=== PATIENT | female | born 1955 | race Caucasian/White ===

== ENCOUNTER 2020-01-08 16:25 | Inpatient (IN) | payer MEDICARE, MEDICAID ==
[~2020-01-08] VITALS: Ht 154.9 cm; Wt 68.8 kg
[2020-01-08] MEDS ORDERED: MAGNESIUM SULFATE PMX 2GM/50ML 50 ML IVPB ONE (17:30)
[2020-01-08 18:14] LABS: BASOPHILS # (AUTO) 0.05 x10^3/uL (0-0.1); BASOPHILS % (AUTO) 0 % (0-1); EOSINOPHILS # (AUTO) 0.15 x10^3/uL (0-0.4); EOSINOPHILS % (AUTO) 1 % (1-7); LYMPHOCYTES # (AUTO) 2.59 x10^3/uL (1-3.4); LYMPHOCYTES % (AUTO) 20 % (22-44); MD NO; MEAN CORPUSCULAR HEMOGLOBIN 29.7 pg (27.0-34.8); MEAN CORPUSCULAR HGB CONC 32.5 g/dL (32.4-35.8); MEAN CORPUSCULAR VOLUME 91.4 fL (80-100); MONOCYTES # (AUTO) 1.13 x10^3/uL (0.2-0.8); MONOCYTES % (AUTO) 9 % (2-9); NEUTROPHILS # (AUTO) 9.34 x10^3/uL (1.8-6.8); NEUTROPHILS % (AUTO) 71 % (42-75); PLATELET COUNT 465 x10^3/uL (130-400); RED BLOOD COUNT 5.58 x10^6/uL (3.82-5.3)
[2020-01-08 18:25] LABS: ALBUMIN 3.5 g/dL (3.4-5.0); ANION GAP 4 mmol/L (5-15); CALCIUM 9.1 mg/dL (8.5-10.1); CHLORIDE 105 mmol/L (98-107)
[2020-01-08 18:30] LABS: ALANINE AMINOTRANSFERASE 22 U/L (12-78); ALKALINE PHOSPHATASE 104 U/L (45-117); BILIRUBIN,TOTAL 0.2 mg/dL (0.2-1.0); TOTAL PROTEIN 9.4 g/dL (6.4-8.2); TROPONIN I < 0.015 ng/mL (0.000-0.045)
[2020-01-08] MEDS ORDERED: CEFEPIME 1 GM in DEXTROSE 5% 50 ML IV ONE (18:30)
--- NOTE | 2020-01-08 19:45 | NUR ---
Report received from MERA Patel. Patient to be admitted for resp infection with COVID r/o. Patient upset upon meeting stating she wanted a meal because she hadn't eaten all day and she wanted to walk to the bathroom. Advised patient we could give her crackers and a bedside commode. Patient stating she would rather go home. Provided bedside commode for patient. Patient agrees to stay at this time.
--- NOTE | 2020-01-08 20:23 | NUR ---
Report given to MERA Chávez. Patient to be transferred to room 301.
[2020-01-08 20:45] VITALS: BP 114/75
[2020-01-08] MEDS ORDERED: hydrALAzine 20 MG/ML, 1ML IVPush PRN (23:00)
[2020-01-08] MEDS ORDERED: ONDANSETRON 2MG/ML, 2ML IVPush PRN (23:00)
[2020-01-08] MEDS ORDERED: ACETAMINOPHEN 325 MG TABLET PO PRN (23:00)
[2020-01-08] MEDS: ENOXAPARIN 40 MG/0.4 ML SQ SCH (23:27)
[2020-01-08] MEDS: methylPREDNISolone SOD SUCC 125 MG/2 ML IVPush SCH (23:27)
[2020-01-08] MEDS: CEFTRIAXONE PMX 1GM/50ML 50 ML IV SCH (23:28)
[2020-01-08] MEDS: HYDROcodone/APAP 5/325 TABLET PO PRN (23:34)
[2020-01-09] MEDS: AZITHROMYCIN 500 MG in SODIUM CHLORIDE 0.9% 250 ML IV SCH (00:24)
[2020-01-09] MEDS ORDERED: ALBUTEROL HFA 90 MCG/SPRAY INH PRN (01:00)
[2020-01-09 01:49] VITALS: BP 128/73
[2020-01-09] MEDS ORDERED: CLON0.1T22 PO (02:09)
[2020-01-09] MEDS ORDERED: GABA300C10 PO (02:12)
[2020-01-09] MEDS ORDERED: BUDE10.2 INH (02:12)
[2020-01-09] MEDS ORDERED: albuterol (02:12)
[2020-01-09] MEDS ORDERED: VENL37.52 PO (02:12)
[2020-01-09 06:13] LABS: BASOPHILS % (AUTO) 0 % (0-1); EOSINOPHILS # (AUTO) 0.04 x10^3/uL (0-0.4); EOSINOPHILS % (AUTO) 0 % (1-7); LYMPHOCYTES # (AUTO) 1.27 x10^3/uL (1-3.4); LYMPHOCYTES % (AUTO) 13 % (22-44); MD NO; MEAN CORPUSCULAR HEMOGLOBIN 29.9 pg (27.0-34.8); MEAN CORPUSCULAR HGB CONC 32.8 g/dL (32.4-35.8); MEAN CORPUSCULAR VOLUME 91.1 fL (80-100); MEAN PLATELET VOLUME 7.9 fL (7.4-10.4); MONOCYTES # (AUTO) 0.16 x10^3/uL (0.2-0.8); MONOCYTES % (AUTO) 2 % (2-9); NEUTROPHILS # (AUTO) 8.64 x10^3/uL (1.8-6.8); NEUTROPHILS % (AUTO) 85 % (42-75); PLATELET COUNT 399 x10^3/uL (130-400); RED BLOOD COUNT 5.43 x10^6/uL (3.82-5.3)
[2020-01-09] MEDS: HYDROcodone/APAP 5/325 TABLET PO PRN ×2 (06:23→19:59)
[2020-01-09 06:25] LABS: ANION GAP 8 mmol/L (5-15); CALCIUM 8.6 mg/dL (8.5-10.1); CHLORIDE 107 mmol/L (98-107); CREATININE 0.84 mg/dL (0.55-1.02)
[2020-01-09] MEDS: GABAPENTIN 300 MG CAPSULE PO SCH ×2 (08:29→19:59)
[2020-01-09] MEDS: VENLAFAXINE XR 37.5MG CAP.ER.24H PO SCH (08:29)
[2020-01-09] MEDS: SENNA/DOCUSATE TABLET PO SCH (08:29)
[2020-01-09] MEDS: methylPREDNISolone SOD SUCC 125 MG/2 ML IVPush SCH (08:29)
[2020-01-09 08:38] VITALS: BP 119/67
[2020-01-09] MEDS ORDERED: CLON0.5T PO (09:00)
[2020-01-09] MEDS ORDERED: KETOROLAC 30 MG/1 ML IVPush PRN (14:00)
[2020-01-09 14:05] VITALS: BP 116/68
[2020-01-09] MEDS: ALBUTEROL-IPRATROPIUM MDI INH INH SCH ×2 (16:37→21:00)
[2020-01-09 20:36] VITALS: BP 130/82
[2020-01-09] MEDS: ENOXAPARIN 40 MG/0.4 ML SQ SCH (22:48)
[2020-01-09] MEDS: CEFTRIAXONE PMX 1GM/50ML 50 ML IV SCH (22:48)
[2020-01-10] MEDS: AZITHROMYCIN 500 MG in SODIUM CHLORIDE 0.9% 250 ML IV SCH (00:30)
[2020-01-10 05:30] VITALS: BP 145/95
[2020-01-10] MEDS: ALBUTEROL-IPRATROPIUM MDI INH INH SCH ×4 (05:30→21:00)
[2020-01-10] MEDS: HYDROcodone/APAP 5/325 TABLET PO PRN ×4 (06:39→21:31)
[2020-01-10 06:49] LABS: INTERNATIONAL NORMALIZED RATIO 0.94 (0.93-1.1)
[2020-01-10 07:15] LABS: BASOPHILS # (AUTO) 0.04 x10^3/uL (0-0.1); BASOPHILS % (AUTO) 0 % (0-1); EOSINOPHILS # (AUTO) 0.06 x10^3/uL (0-0.4); EOSINOPHILS % (AUTO) 0 % (1-7); LYMPHOCYTES # (AUTO) 3.06 x10^3/uL (1-3.4); LYMPHOCYTES % (AUTO) 19 % (22-44); MD SCAN; MEAN CORPUSCULAR HEMOGLOBIN 29.8 pg (27.0-34.8); MEAN CORPUSCULAR HGB CONC 32.5 g/dL (32.4-35.8); MEAN CORPUSCULAR VOLUME 91.6 fL (80-100); MEAN PLATELET VOLUME 8.1 fL (7.4-10.4); MONOCYTES # (AUTO) 0.96 x10^3/uL (0.2-0.8); MONOCYTES % (AUTO) 6 % (2-9); NEUTROPHILS # (AUTO) 12.33 x10^3/uL (1.8-6.8); NEUTROPHILS % (AUTO) 75 % (42-75); PLATELET COUNT 401 x10^3/uL (130-400); RED BLOOD COUNT 5.92 x10^6/uL (3.82-5.3); RED CELL DISTRIBUTION WIDTH 16.2 % (9.6-15.2)
[2020-01-10] MEDS ORDERED: TIOTROPIUM INH SCH (09:00)
[2020-01-10] MEDS: SENNA/DOCUSATE TABLET PO SCH (09:13)
[2020-01-10] MEDS: GABAPENTIN 300 MG CAPSULE PO SCH ×2 (09:13→21:30)
[2020-01-10] MEDS: CLINDAMYCIN PMX 600MG/50ML 50 ML IV SCH ×3 (09:13→22:44)
[2020-01-10] MEDS: VENLAFAXINE XR 37.5MG CAP.ER.24H PO SCH (09:14)
[2020-01-10 09:30] VITALS: BP 130/79
[2020-01-10 12:45] VITALS: BP_SYST 117; BP_SYST 130; BP_DIAS 72; BP_DIAS 79
[2020-01-10] MEDS: BUDESONIDE 0.5 MG/2 ML INHA NPPB SCH (21:00)
[2020-01-10 21:33] VITALS: BP 147/80
[2020-01-10] MEDS: CEFTRIAXONE PMX 1GM/50ML 50 ML IV SCH (23:58)
[2020-01-10] MEDS: ENOXAPARIN 40 MG/0.4 ML SQ SCH (23:58)
[2020-01-11 00:40] VITALS: BP 121/78
[2020-01-11] MEDS: AZITHROMYCIN 500 MG in SODIUM CHLORIDE 0.9% 250 ML IV SCH (00:47)
[2020-01-11] MEDS: ALBUTEROL-IPRATROPIUM MDI INH INH SCH ×4 (06:00→21:00)
[2020-01-11 06:11] LABS: BASOPHILS # (AUTO) 0.04 x10^3/uL (0-0.1); BASOPHILS % (AUTO) 0 % (0-1); EOSINOPHILS # (AUTO) 0.26 x10^3/uL (0-0.4); EOSINOPHILS % (AUTO) 2 % (1-7); LYMPHOCYTES # (AUTO) 2.75 x10^3/uL (1-3.4); LYMPHOCYTES % (AUTO) 20 % (22-44); MD NO; MEAN CORPUSCULAR HEMOGLOBIN 29.7 pg (27.0-34.8); MEAN CORPUSCULAR HGB CONC 32.4 g/dL (32.4-35.8); MEAN CORPUSCULAR VOLUME 91.6 fL (80-100); MONOCYTES # (AUTO) 1.42 x10^3/uL (0.2-0.8); MONOCYTES % (AUTO) 10 % (2-9); NEUTROPHILS # (AUTO) 9.23 x10^3/uL (1.8-6.8); NEUTROPHILS % (AUTO) 67 % (42-75); PLATELET COUNT 369 x10^3/uL (130-400); RED BLOOD COUNT 5.56 x10^6/uL (3.82-5.3); RED CELL DISTRIBUTION WIDTH 15.9 % (9.6-15.2)
[2020-01-11 07:34] VITALS: BP 155/81
[2020-01-11] MEDS: GABAPENTIN 300 MG CAPSULE PO SCH ×2 (08:12→19:53)
[2020-01-11] MEDS: VENLAFAXINE XR 37.5MG CAP.ER.24H PO SCH (08:12)
[2020-01-11] MEDS: HYDROcodone/APAP 5/325 TABLET PO PRN ×3 (08:16→16:27)
[2020-01-11] MEDS: BUDESONIDE 0.5 MG/2 ML INHA NPPB SCH ×2 (09:00→21:00)
[2020-01-11] MEDS: SENNA/DOCUSATE TABLET PO SCH (09:00)
[2020-01-11 09:07] LABS: HCT (SEDRATE) 50.3 % (34.6-47.8)
[2020-01-11] MEDS: MICAFUNGIN 100 MG in SODIUM CHLORIDE 0.9% 100 ML IV SCH (09:30)
[2020-01-11] MEDS: AMPICILLIN/SULBACTAM 1,500 MG in SODIUM CHLORIDE 0.9% 50 ML IV SCH ×3 (10:39→22:42)
[2020-01-11 13:08] VITALS: BP 117/82
[2020-01-11 19:54] VITALS: BP 119/80
[2020-01-11] MEDS: ENOXAPARIN 40 MG/0.4 ML SQ SCH (22:42)
[2020-01-12 00:01] VITALS: BP 115/76
[2020-01-12] MEDS: AZITHROMYCIN 500 MG in SODIUM CHLORIDE 0.9% 250 ML IV SCH (00:01)
[2020-01-12] MEDS: HYDROcodone/APAP 5/325 TABLET PO PRN ×4 (01:57→21:30)
[2020-01-12] MEDS: AMPICILLIN/SULBACTAM 1,500 MG in SODIUM CHLORIDE 0.9% 50 ML IV SCH ×3 (05:08→23:07)
[2020-01-12] MEDS: ALBUTEROL-IPRATROPIUM MDI INH INH SCH ×4 (06:00→21:00)
[2020-01-12 06:03] LABS: MEAN CORPUSCULAR HEMOGLOBIN 29.9 pg (27.0-34.8); MEAN CORPUSCULAR VOLUME 90.5 fL (80-100); MEAN PLATELET VOLUME 7.9 fL (7.4-10.4); PLATELET COUNT 311 x10^3/uL (130-400); RED BLOOD COUNT 5.32 x10^6/uL (3.82-5.3)
[2020-01-12 06:39] LABS: BASOPHILS # (AUTO) 0.03 x10^3/uL (0-0.1); BASOPHILS % (AUTO) 0 % (0-1); EOSINOPHILS # (AUTO) 0.35 x10^3/uL (0-0.4); EOSINOPHILS % (AUTO) 3 % (1-7); LYMPHOCYTES # (AUTO) 1.79 x10^3/uL (1-3.4); LYMPHOCYTES % (AUTO) 17 % (22-44); MD SCAN; MONOCYTES # (AUTO) 0.94 x10^3/uL (0.2-0.8); MONOCYTES % (AUTO) 9 % (2-9); NEUTROPHILS # (AUTO) 7.67 x10^3/uL (1.8-6.8); NEUTROPHILS % (AUTO) 71 % (42-75)
[2020-01-12 07:51] VITALS: BP 131/78
[2020-01-12] MEDS: MICAFUNGIN 100 MG in SODIUM CHLORIDE 0.9% 100 ML IV SCH (08:02)
[2020-01-12] MEDS: VENLAFAXINE XR 37.5MG CAP.ER.24H PO SCH (08:03)
[2020-01-12] MEDS: GABAPENTIN 300 MG CAPSULE PO SCH ×2 (08:03→21:29)
[2020-01-12] MEDS: SENNA/DOCUSATE TABLET PO SCH ×2 (08:32→17:24)
[2020-01-12] MEDS: BUDESONIDE 0.5 MG/2 ML INHA NPPB SCH ×2 (09:00→21:00)
[2020-01-12 14:54] VITALS: BP 107/69
[2020-01-12 18:54] VITALS: BP 128/69
[2020-01-13] MEDS: AZITHROMYCIN 500 MG in SODIUM CHLORIDE 0.9% 250 ML IV SCH (00:04)
[2020-01-13 03:45] VITALS: BP 135/52
[2020-01-13] MEDS: AMPICILLIN/SULBACTAM 1,500 MG in SODIUM CHLORIDE 0.9% 50 ML IV SCH ×4 (04:12→21:25)
[2020-01-13] MEDS: HYDROcodone/APAP 5/325 TABLET PO PRN ×4 (04:33→23:35)
[2020-01-13 05:14] LABS: BASOPHILS # (AUTO) 0.05 x10^3/uL (0-0.1); BASOPHILS % (AUTO) 0 % (0-1); EOSINOPHILS % (AUTO) 3 % (1-7); LYMPHOCYTES # (AUTO) 2.12 x10^3/uL (1-3.4); LYMPHOCYTES % (AUTO) 18 % (22-44); MD NO; MEAN CORPUSCULAR HEMOGLOBIN 29.9 pg (27.0-34.8); MEAN CORPUSCULAR HGB CONC 32.9 g/dL (32.4-35.8); MEAN PLATELET VOLUME 8.2 fL (7.4-10.4); MONOCYTES # (AUTO) 1.19 x10^3/uL (0.2-0.8); MONOCYTES % (AUTO) 10 % (2-9); NEUTROPHILS # (AUTO) 8.06 x10^3/uL (1.8-6.8); NEUTROPHILS % (AUTO) 68 % (42-75); PLATELET COUNT 300 x10^3/uL (130-400); RED BLOOD COUNT 5.18 x10^6/uL (3.82-5.3); RED CELL DISTRIBUTION WIDTH 16.4 % (9.6-15.2)
[2020-01-13] MEDS: ALBUTEROL-IPRATROPIUM MDI INH INH SCH ×3 (06:00→17:05)
[2020-01-13 07:31] VITALS: BP 103/73
[2020-01-13] MEDS: MICAFUNGIN 100 MG in SODIUM CHLORIDE 0.9% 100 ML IV SCH (08:18)
[2020-01-13] MEDS ORDERED: NALOXONE 1 MG/ML, 2ML ONE (08:56)
[2020-01-13] MEDS ORDERED: FLUMAZENIL 0.1 MG/1 ML, 5ML ONE (08:56)
[2020-01-13] MEDS ORDERED: MIDAZOLAM 1 MG/ML, 5ML ONE (08:56)
[2020-01-13] MEDS ORDERED: FENTANYL PF 100 MCG/2ML ONE (08:56)
[2020-01-13] MEDS: SENNA/DOCUSATE TABLET PO SCH (11:00)
[2020-01-13] MEDS: GABAPENTIN 300 MG CAPSULE PO SCH ×2 (11:27→21:25)
[2020-01-13] MEDS: VENLAFAXINE XR 37.5MG CAP.ER.24H PO SCH (11:27)
[2020-01-13] MEDS: HEPARIN 5,000 UNITS/ML, 1ML SQ SCH ×2 (13:03→21:25)
[2020-01-13 13:05] VITALS: BP 108/66
[2020-01-13 18:25] VITALS: BP 151/94
[2020-01-14 00:21] VITALS: BP 120/74
[2020-01-14] MEDS: AMPICILLIN/SULBACTAM 1,500 MG in SODIUM CHLORIDE 0.9% 50 ML IV SCH ×3 (03:41→21:13)
[2020-01-14] MEDS: HEPARIN 5,000 UNITS/ML, 1ML SQ SCH ×3 (04:30→21:19)
[2020-01-14 06:11] LABS: MEAN CORPUSCULAR HEMOGLOBIN 30.2 pg (27.0-34.8); MEAN CORPUSCULAR HGB CONC 32.8 g/dL (32.4-35.8); MEAN CORPUSCULAR VOLUME 91.9 fL (80-100); MEAN PLATELET VOLUME 8.1 fL (7.4-10.4); PLATELET COUNT 281 x10^3/uL (130-400); RED BLOOD COUNT 5.09 x10^6/uL (3.82-5.3); RED CELL DISTRIBUTION WIDTH 15.9 % (9.6-15.2)
[2020-01-14 06:44] LABS: BASOPHILS % (AUTO) 1 % (0-1); EOSINOPHILS # (AUTO) 0.37 x10^3/uL (0-0.4); EOSINOPHILS % (AUTO) 3 % (1-7); LYMPHOCYTES # (AUTO) 1.98 x10^3/uL (1-3.4); LYMPHOCYTES % (AUTO) 15 % (22-44); MD SCAN; MONOCYTES # (AUTO) 1.93 x10^3/uL (0.2-0.8); MONOCYTES % (AUTO) 15 % (2-9); NEUTROPHILS % (AUTO) 67 % (42-75)
[2020-01-14 06:59] LABS: HCT (SEDRATE) 46.7 % (34.6-47.8)
[2020-01-14 07:40] VITALS: BP 122/77
[2020-01-14] MEDS: GABAPENTIN 300 MG CAPSULE PO SCH ×2 (09:31→21:13)
[2020-01-14] MEDS: HYDROcodone/APAP 5/325 TABLET PO PRN ×3 (09:32→21:26)
[2020-01-14] MEDS: VENLAFAXINE XR 37.5MG CAP.ER.24H PO SCH (09:32)
[2020-01-14] MEDS: SENNA/DOCUSATE TABLET PO SCH ×2 (09:33→23:19)
[2020-01-14] MEDS: MICAFUNGIN 100 MG in SODIUM CHLORIDE 0.9% 100 ML IV SCH (09:33)
[2020-01-14] MEDS: IBUPROFEN 200 MG TABLET PO PRN (13:18)
[2020-01-14 19:55] VITALS: BP 104/62
[2020-01-15 01:14] VITALS: BP 104/66
[2020-01-15] MEDS: AMPICILLIN/SULBACTAM 1,500 MG in SODIUM CHLORIDE 0.9% 50 ML IV SCH ×2 (02:43→08:48)
[2020-01-15 04:26] LABS: MEAN CORPUSCULAR HEMOGLOBIN 30.1 pg (27.0-34.8); MEAN CORPUSCULAR HGB CONC 33.1 g/dL (32.4-35.8); MEAN CORPUSCULAR VOLUME 90.9 fL (80-100); MEAN PLATELET VOLUME 8.3 fL (7.4-10.4); PLATELET COUNT 293 x10^3/uL (130-400); RED BLOOD COUNT 4.78 x10^6/uL (3.82-5.3); RED CELL DISTRIBUTION WIDTH 16.2 % (9.6-15.2)
[2020-01-15] MEDS: HEPARIN 5,000 UNITS/ML, 1ML SQ SCH ×3 (04:27→20:47)
[2020-01-15 05:29] LABS: MD YES
[2020-01-15 05:32] LABS: <PLATELET ESTIMATE> ADEQUATE; <PLT MORPHOLOGY> NORMAL PLT MORPH; ANISOCYTOSIS 1+; BAND#(MANUAL) 0.61 x10^3/uL; BANDS%(MANUAL) 4 % (0-7); LYMPH#(MANUAL) 1.38 x10^3/uL (1-3.4); LYMPHS% (MANUAL) 9 % (22-44); MONOS#(MANUAL) 1.38 x10^3/uL (0.3-2.7); MONOS% (MANUAL) 9 % (2-9); SEG#(MANUAL) 11.93 x10^3/uL (1.8-6.8); SEGS% (MANUAL) 78 % (42-75)
[2020-01-15] MEDS: HYDROcodone/APAP 5/325 TABLET PO PRN ×2 (05:58→20:48)
[2020-01-15 06:39] VITALS: BP 132/88
[2020-01-15] MEDS: GABAPENTIN 300 MG CAPSULE PO SCH ×2 (08:47→20:47)
[2020-01-15] MEDS: VENLAFAXINE XR 37.5MG CAP.ER.24H PO SCH (08:47)
[2020-01-15] MEDS: SENNA/DOCUSATE TABLET PO SCH (08:48)
[2020-01-15] MEDS: MICAFUNGIN 100 MG in SODIUM CHLORIDE 0.9% 100 ML IV SCH (10:17)
[2020-01-15] MEDS: VORICONAZOLE 200 MG TABLET PO SCH (12:48)
[2020-01-15] MEDS ORDERED: AMPICILLIN/SULBACTAM 3,000 MG in SODIUM CHLORIDE 0.9% 50 ML IV SCH (14:00)
[2020-01-15 15:05] VITALS: BP 116/75
[2020-01-15] MEDS: IBUPROFEN 200 MG TABLET PO PRN (15:13)
[2020-01-15 18:14] VITALS: BP 108/72
[2020-01-15 19:50] VITALS: BP 142/88
[2020-01-15] MEDS: AMPICILLIN/SULBACTAM 3 GM in SODIUM CHLORIDE 0.9% 100 ML IV SCH (22:07)
[2020-01-16] MEDS: VORICONAZOLE 200 MG TABLET PO SCH ×3 (00:33→20:05)
[2020-01-16 00:47] VITALS: BP 110/78
[2020-01-16] MEDS: HEPARIN 5,000 UNITS/ML, 1ML SQ SCH ×3 (04:23→20:05)
[2020-01-16 05:14] LABS: BASOPHILS # (AUTO) 0.07 x10^3/uL (0-0.1); BASOPHILS % (AUTO) 1 % (0-1); EOSINOPHILS # (AUTO) 0.54 x10^3/uL (0-0.4); EOSINOPHILS % (AUTO) 5 % (1-7); LYMPHOCYTES # (AUTO) 2.05 x10^3/uL (1-3.4); LYMPHOCYTES % (AUTO) 17 % (22-44); MD NO; MEAN CORPUSCULAR HEMOGLOBIN 29.7 pg (27.0-34.8); MEAN CORPUSCULAR HGB CONC 32.7 g/dL (32.4-35.8); MEAN CORPUSCULAR VOLUME 91.1 fL (80-100); MEAN PLATELET VOLUME 8.4 fL (7.4-10.4); MONOCYTES # (AUTO) 1.35 x10^3/uL (0.2-0.8); MONOCYTES % (AUTO) 11 % (2-9); NEUTROPHILS # (AUTO) 7.82 x10^3/uL (1.8-6.8); NEUTROPHILS % (AUTO) 66 % (42-75); PLATELET COUNT 308 x10^3/uL (130-400); RED BLOOD COUNT 4.89 x10^6/uL (3.82-5.3)
[2020-01-16] MEDS: AMPICILLIN/SULBACTAM 3 GM in SODIUM CHLORIDE 0.9% 100 ML IV SCH ×3 (06:19→21:49)
[2020-01-16] MEDS: HYDROcodone/APAP 5/325 TABLET PO PRN ×3 (06:39→19:11)
[2020-01-16] MEDS: GABAPENTIN 300 MG CAPSULE PO SCH ×2 (07:40→20:05)
[2020-01-16] MEDS: VENLAFAXINE XR 37.5MG CAP.ER.24H PO SCH (07:40)
[2020-01-16] MEDS: SENNA/DOCUSATE TABLET PO SCH (07:40)
[2020-01-16 07:55] VITALS: BP 104/69
[2020-01-16 14:03] VITALS: BP 100/64
[2020-01-16 19:57] VITALS: BP 101/66
[2020-01-17 02:15] VITALS: BP 127/70
[2020-01-17] MEDS: HEPARIN 5,000 UNITS/ML, 1ML SQ SCH ×3 (05:11→20:10)
[2020-01-17] MEDS: AMPICILLIN/SULBACTAM 3 GM in SODIUM CHLORIDE 0.9% 100 ML IV SCH ×3 (05:12→22:08)
[2020-01-17] MEDS: HYDROcodone/APAP 5/325 TABLET PO PRN ×3 (05:29→20:09)
[2020-01-17 05:49] LABS: MEAN CORPUSCULAR HEMOGLOBIN 30.5 pg (27.0-34.8); MEAN CORPUSCULAR HGB CONC 33.6 g/dL (32.4-35.8); MEAN CORPUSCULAR VOLUME 90.9 fL (80-100); MEAN PLATELET VOLUME 8.1 fL (7.4-10.4); PLATELET COUNT 309 x10^3/uL (130-400); RED CELL DISTRIBUTION WIDTH 16.5 % (9.6-15.2)
[2020-01-17 06:42] LABS: BASOPHILS # (AUTO) 0.04 x10^3/uL (0-0.1); BASOPHILS % (AUTO) 0 % (0-1); EOSINOPHILS # (AUTO) 0.41 x10^3/uL (0-0.4); EOSINOPHILS % (AUTO) 4 % (1-7); LYMPHOCYTES # (AUTO) 1.75 x10^3/uL (1-3.4); LYMPHOCYTES % (AUTO) 15 % (22-44); MD SCAN; MONOCYTES # (AUTO) 1.26 x10^3/uL (0.2-0.8); MONOCYTES % (AUTO) 11 % (2-9); NEUTROPHILS # (AUTO) 8.34 x10^3/uL (1.8-6.8); NEUTROPHILS % (AUTO) 71 % (42-75)
[2020-01-17 07:48] VITALS: BP 95/59
[2020-01-17] MEDS: GABAPENTIN 300 MG CAPSULE PO SCH ×2 (08:36→20:10)
[2020-01-17] MEDS: VENLAFAXINE XR 37.5MG CAP.ER.24H PO SCH (08:36)
[2020-01-17] MEDS: SENNA/DOCUSATE TABLET PO SCH (08:36)
[2020-01-17] MEDS: VORICONAZOLE 200 MG TABLET PO SCH ×2 (08:37→20:10)
[2020-01-17] MEDS ORDERED: METOPROLOL TARTRATE 25 MG TAB PO SCH (09:00)
[2020-01-17 13:04] VITALS: BP 110/68
[2020-01-17] MEDS ORDERED: ALBUTEROL SULFATE 2.5 MG/3 ML NEB PRN (13:30)
[2020-01-17] MEDS ORDERED: OMNIPAQUE 350 MG/ML, 100ML BOTTLE ONE (15:24)
[2020-01-17] MEDS: GUAIFENESIN 200 MG TABLET PO SCH ×2 (15:30→20:09)
[2020-01-17 20:17] VITALS: BP 111/55
[2020-01-18] MEDS: HYDROcodone/APAP 5/325 TABLET PO PRN ×2 (02:21→09:53)
[2020-01-18 02:24] VITALS: BP 103/64
[2020-01-18] MEDS: HEPARIN 5,000 UNITS/ML, 1ML SQ SCH (05:03)
[2020-01-18] MEDS: GUAIFENESIN 200 MG TABLET PO SCH ×4 (05:03→21:29)
[2020-01-18 05:41] LABS: HCT (SEDRATE) 39.5 % (34.6-47.8); MEAN CORPUSCULAR HEMOGLOBIN 29.7 pg (27.0-34.8); MEAN CORPUSCULAR HGB CONC 32.8 g/dL (32.4-35.8); MEAN CORPUSCULAR VOLUME 90.4 fL (80-100); MEAN PLATELET VOLUME 8.2 fL (7.4-10.4); PLATELET COUNT 295 x10^3/uL (130-400); RED BLOOD COUNT 4.31 x10^6/uL (3.82-5.3); RED CELL DISTRIBUTION WIDTH 16.7 % (9.6-15.2)
[2020-01-18 05:51] LABS: CHLORIDE 103 mmol/L (98-107)
[2020-01-18 06:03] LABS: ALANINE AMINOTRANSFERASE 18 U/L (12-78); ALBUMIN 2.5 g/dL (3.4-5.0); ALKALINE PHOSPHATASE 96 U/L (45-117); ANION GAP 7 mmol/L (5-15); BILIRUBIN,TOTAL 0.3 mg/dL (0.2-1.0); CALCIUM 9.1 mg/dL (8.5-10.1); CREATININE 0.86 mg/dL (0.55-1.02); TOTAL PROTEIN 7.8 g/dL (6.4-8.2)
[2020-01-18 06:14] LABS: BASOPHILS # (AUTO) 0.04 x10^3/uL (0-0.1); BASOPHILS % (AUTO) 0 % (0-1); EOSINOPHILS # (AUTO) 0.46 x10^3/uL (0-0.4); EOSINOPHILS % (AUTO) 5 % (1-7); LYMPHOCYTES % (AUTO) 16 % (22-44); MD SCAN; MONOCYTES # (AUTO) 1.45 x10^3/uL (0.2-0.8); MONOCYTES % (AUTO) 15 % (2-9); NEUTROPHILS # (AUTO) 6.48 x10^3/uL (1.8-6.8); NEUTROPHILS % (AUTO) 65 % (42-75)
[2020-01-18] MEDS: AMPICILLIN/SULBACTAM 3 GM in SODIUM CHLORIDE 0.9% 100 ML IV SCH ×3 (06:23→22:10)
[2020-01-18 07:06] VITALS: BP 101/62
[2020-01-18] MEDS: METOPROLOL TARTRATE 25 MG TAB PO SCH ×3 (09:00→21:29)
[2020-01-18] MEDS ORDERED: OMNIPAQUE 350 MG/ML, 100ML BOTTLE ONE (09:15)
[2020-01-18] MEDS: SENNA/DOCUSATE TABLET PO SCH (09:54)
[2020-01-18] MEDS: VORICONAZOLE 200 MG TABLET PO SCH (09:54)
[2020-01-18] MEDS: GABAPENTIN 300 MG CAPSULE PO SCH ×2 (09:54→21:29)
[2020-01-18] MEDS: VENLAFAXINE XR 37.5MG CAP.ER.24H PO SCH (09:55)
[2020-01-18] MEDS ORDERED: BISACODYL 10 MG SUPP PR PRN (10:30)
[2020-01-18] MEDS: MAGNESIUM CITRATE 300ML ORAL SOL PO SCH ×2 (10:57→15:53)
[2020-01-18] MEDS ORDERED: ENOXAPARIN 40 MG/0.4 ML SQ SCH (11:00)
[2020-01-18 12:36] VITALS: BP 106/68
[2020-01-18 19:34] VITALS: BP 135/75
[2020-01-19] MEDS: HYDROcodone/APAP 5/325 TABLET PO PRN ×4 (00:18→21:04)
[2020-01-19 03:00] VITALS: BP 115/62
[2020-01-19 04:46] LABS: BASOPHILS # (AUTO) 0.04 x10^3/uL (0-0.1); BASOPHILS % (AUTO) 0 % (0-1); EOSINOPHILS # (AUTO) 0.32 x10^3/uL (0-0.4); EOSINOPHILS % (AUTO) 3 % (1-7); LYMPHOCYTES # (AUTO) 1.76 x10^3/uL (1-3.4); LYMPHOCYTES % (AUTO) 18 % (22-44); MD NO; MEAN CORPUSCULAR HGB CONC 32.6 g/dL (32.4-35.8); MEAN CORPUSCULAR VOLUME 92.1 fL (80-100); MEAN PLATELET VOLUME 8.2 fL (7.4-10.4); MONOCYTES # (AUTO) 1.36 x10^3/uL (0.2-0.8); MONOCYTES % (AUTO) 14 % (2-9); NEUTROPHILS # (AUTO) 6.34 x10^3/uL (1.8-6.8); NEUTROPHILS % (AUTO) 65 % (42-75); PLATELET COUNT 324 x10^3/uL (130-400); RED BLOOD COUNT 4.22 x10^6/uL (3.82-5.3); RED CELL DISTRIBUTION WIDTH 16.1 % (9.6-15.2)
[2020-01-19] MEDS: GUAIFENESIN 200 MG TABLET PO SCH ×4 (06:00→21:04)
[2020-01-19] MEDS: AMPICILLIN/SULBACTAM 3 GM in SODIUM CHLORIDE 0.9% 100 ML IV SCH ×3 (06:20→22:26)
[2020-01-19 07:30] VITALS: BP 122/73
[2020-01-19] MEDS: VENLAFAXINE XR 37.5MG CAP.ER.24H PO SCH (09:13)
[2020-01-19] MEDS: GABAPENTIN 300 MG CAPSULE PO SCH ×2 (09:13→21:03)
[2020-01-19] MEDS: METOPROLOL TARTRATE 25 MG TAB PO SCH ×2 (09:13→21:06)
[2020-01-19] MEDS: SENNA/DOCUSATE TABLET PO SCH (09:13)
[2020-01-19 12:04] VITALS: BP 95/59
[2020-01-19 19:42] VITALS: BP 122/67
[2020-01-20 02:51] VITALS: BP 90/54
[2020-01-20 05:29] LABS: ALANINE AMINOTRANSFERASE 19 U/L (12-78); ALBUMIN 2.4 g/dL (3.4-5.0); ANION GAP 4 mmol/L (5-15); CALCIUM 8.8 mg/dL (8.5-10.1); CHLORIDE 107 mmol/L (98-107); CREATININE 0.74 mg/dL (0.55-1.02)
[2020-01-20 05:37] LABS: ALKALINE PHOSPHATASE 91 U/L (45-117); BASOPHILS # (AUTO) 0.03 x10^3/uL (0-0.1); BASOPHILS % (AUTO) 0 % (0-1); BILIRUBIN,TOTAL 0.3 mg/dL (0.2-1.0); EOSINOPHILS # (AUTO) 0.39 x10^3/uL (0-0.4); EOSINOPHILS % (AUTO) 5 % (1-7); LYMPHOCYTES # (AUTO) 1.24 x10^3/uL (1-3.4); LYMPHOCYTES % (AUTO) 17 % (22-44); MD NO; MEAN CORPUSCULAR HEMOGLOBIN 29.9 pg (27.0-34.8); MEAN CORPUSCULAR VOLUME 90.5 fL (80-100); MEAN PLATELET VOLUME 8.3 fL (7.4-10.4); MONOCYTES # (AUTO) 1.09 x10^3/uL (0.2-0.8); MONOCYTES % (AUTO) 15 % (2-9); NEUTROPHILS # (AUTO) 4.39 x10^3/uL (1.8-6.8); NEUTROPHILS % (AUTO) 62 % (42-75); PLATELET COUNT 290 x10^3/uL (130-400); RED BLOOD COUNT 3.91 x10^6/uL (3.82-5.3); TOTAL PROTEIN 7.4 g/dL (6.4-8.2)
[2020-01-20] MEDS: AMPICILLIN/SULBACTAM 3 GM in SODIUM CHLORIDE 0.9% 100 ML IV SCH ×3 (05:57→22:01)
[2020-01-20] MEDS: GUAIFENESIN 200 MG TABLET PO SCH ×4 (05:57→20:53)
[2020-01-20 06:30] LABS: HCT (SEDRATE) 35.4 % (34.6-47.8)
[2020-01-20 07:21] VITALS: BP 110/58
[2020-01-20] MEDS: GABAPENTIN 300 MG CAPSULE PO SCH ×2 (07:32→20:52)
[2020-01-20] MEDS: VENLAFAXINE XR 37.5MG CAP.ER.24H PO SCH (07:32)
[2020-01-20] MEDS: METOPROLOL TARTRATE 25 MG TAB PO SCH ×2 (07:33→21:00)
[2020-01-20] MEDS: HYDROcodone/APAP 5/325 TABLET PO PRN (07:36)
[2020-01-20] MEDS ORDERED: BUPIVACAINE/PF-EPI 0.5% 1:200K ONE (08:02)
[2020-01-20] MEDS: SENNA/DOCUSATE TABLET PO SCH (09:10)
[2020-01-20] MEDS ORDERED: SUGAMMADEX 200 MG/2 ML IVPush ONE (10:43)
[2020-01-20] MEDS ORDERED: ACETAMINOPHEN 500 MG TABLET ONE (10:43)
[2020-01-20] MEDS ORDERED: GABAPENTIN 300 MG CAPSULE ONE (10:43)
[2020-01-20] MEDS ORDERED: DEXAMETHASONE 4 MG/ML, 1ML ONE (10:43)
[2020-01-20] MEDS ORDERED: CEFAZOLIN 1,000 MG ONE (10:43)
[2020-01-20] MEDS ORDERED: ONDANSETRON 2MG/ML, 2ML ONE (10:43)
[2020-01-20] MEDS ORDERED: PROPOFOL 10 MG/ML, 20ML ONE (10:43)
[2020-01-20] MEDS ORDERED: ROCURONIUM 10 MG/ML,10ML ONE (10:43)
[2020-01-20] MEDS ORDERED: CHLORHEXIDINE 15 ML UDC MM ONE (11:00)
[2020-01-20] MEDS ORDERED: FENTANYL PF 100 MCG/2ML ONE (13:09)
[2020-01-20] MEDS ORDERED: HYDROmorphone 2 MG/ML, 1ML ONE (13:09)
[2020-01-20] MEDS: FENTANYL PF 100 MCG/2ML IV PRN ×2 (13:11→14:06)
[2020-01-20] MEDS: HYDROmorphone 2 MG/ML, 1ML IVPush PRN ×2 (13:13→13:43)
[2020-01-20] MEDS ORDERED: ALBUTEROL SULFATE 2.5 MG/3 ML NPPB PRN (14:30)
[2020-01-20] MEDS ORDERED: hydrALAzine 20 MG/ML, 1ML IV PRN (14:30)
[2020-01-20] MEDS ORDERED: ACETAMINOPHEN 325 MG TABLET PO PRN (14:30)
[2020-01-20] MEDS ORDERED: OXYcodone 5 MG/5 ML ORAL.SOL UDC PO PRN (14:30)
[2020-01-20] MEDS ORDERED: LABETALOL 5MG/ML, 20ML IV PRN (14:30)
[2020-01-20] MEDS ORDERED: KETOROLAC 30 MG/1 ML IV PRN (14:30)
[2020-01-20] MEDS ORDERED: DIAZEPAM 5 MG/ML, 2ML IVPush PRN (14:30)
[2020-01-20] MEDS ORDERED: MEPERIDINE/PF 25MG/0.5ML IVPush PRN (14:30)
[2020-01-20] MEDS ORDERED: PROMETHAZINE 25 MG/ML, 1ML IV PRN (14:30)
[2020-01-20] MEDS ORDERED: PHENYLEPHRINE 50 MG in SODIUM CHLORIDE 0.9% 245 ML IV SCH (14:52)
[2020-01-20] MEDS: MORPHINE SULFATE 4 MG/ML, 1ML IVPush PRN ×2 (20:21→23:33)
[2020-01-21] MEDS: MORPHINE SULFATE 4 MG/ML, 1ML IVPush PRN ×2 (03:03→05:58)
[2020-01-21] MEDS: HYDROcodone/APAP 5/325 TABLET PO PRN ×4 (03:59→22:36)
[2020-01-21 04:40] LABS: BASOPHILS # (AUTO) 0.01 x10^3/uL (0-0.1); BASOPHILS % (AUTO) 0 % (0-1); EOSINOPHILS % (AUTO) 0 % (1-7); LYMPHOCYTES # (AUTO) 1.01 x10^3/uL (1-3.4); LYMPHOCYTES % (AUTO) 6 % (22-44); MD NO; MEAN CORPUSCULAR HEMOGLOBIN 29.4 pg (27.0-34.8); MEAN CORPUSCULAR HGB CONC 33.2 g/dL (32.4-35.8); MEAN CORPUSCULAR VOLUME 88.6 fL (80-100); MEAN PLATELET VOLUME 8.3 fL (7.4-10.4); MONOCYTES # (AUTO) 1.16 x10^3/uL (0.2-0.8); MONOCYTES % (AUTO) 7 % (2-9); NEUTROPHILS # (AUTO) 14.34 x10^3/uL (1.8-6.8); NEUTROPHILS % (AUTO) 87 % (42-75); PLATELET COUNT 300 x10^3/uL (130-400); RED BLOOD COUNT 3.43 x10^6/uL (3.82-5.3); RED CELL DISTRIBUTION WIDTH 17.3 % (9.6-15.2)
[2020-01-21 04:53] LABS: ANION GAP 8 mmol/L (5-15); CALCIUM 8.2 mg/dL (8.5-10.1); CHLORIDE 104 mmol/L (98-107)
[2020-01-21 05:02] LABS: CREATININE 0.57 mg/dL (0.55-1.02)
[2020-01-21] MEDS: AMPICILLIN/SULBACTAM 3 GM in SODIUM CHLORIDE 0.9% 100 ML IV SCH ×3 (05:49→22:35)
[2020-01-21] MEDS: GUAIFENESIN 200 MG TABLET PO SCH ×4 (05:57→19:59)
[2020-01-21] MEDS ORDERED: KETOROLAC 30 MG/1 ML ONE (07:54)
[2020-01-21] MEDS ORDERED: KETOROLAC 30 MG/1 ML IM PRN (08:00)
[2020-01-21] MEDS: KETOROLAC 30 MG/1 ML IVPush PRN ×3 (08:00→19:56)
[2020-01-21] MEDS: VENLAFAXINE XR 37.5MG CAP.ER.24H PO SCH (08:56)
[2020-01-21] MEDS: GABAPENTIN 300 MG CAPSULE PO SCH ×2 (08:56→21:02)
[2020-01-21] MEDS: METOPROLOL TARTRATE 25 MG TAB PO SCH ×2 (08:57→19:58)
[2020-01-21] MEDS: SENNA/DOCUSATE TABLET PO SCH (08:58)
[2020-01-21] MEDS ORDERED: MAGNESIUM CITRATE 300ML ORAL SOL PO PRN ×2 (09:00)
[2020-01-21] MEDS ORDERED: BISACODYL 10 MG SUPP PR PRN (09:00)
[2020-01-21 10:15] VITALS: BP 109/63
[2020-01-21 14:15] VITALS: BP 104/59
[2020-01-21 18:22] VITALS: BP 92/61
[2020-01-22] VITALS (9 sets, daily range): BP systolic 84–109; BP diastolic 44–75
[2020-01-22] MEDS: HYDROcodone/APAP 5/325 TABLET PO PRN ×3 (02:59→17:09)
[2020-01-22] MEDS: KETOROLAC 30 MG/1 ML IVPush PRN ×4 (02:59→22:36)
[2020-01-22] MEDS: AMPICILLIN/SULBACTAM 3 GM in SODIUM CHLORIDE 0.9% 100 ML IV SCH ×3 (06:00→22:36)
[2020-01-22] MEDS: GUAIFENESIN 200 MG TABLET PO SCH ×5 (06:00→20:20)
[2020-01-22 06:29] LABS: MEAN CORPUSCULAR HEMOGLOBIN 29.3 pg (27.0-34.8); MEAN CORPUSCULAR HGB CONC 32.5 g/dL (32.4-35.8); MEAN CORPUSCULAR VOLUME 90.3 fL (80-100); MEAN PLATELET VOLUME 7.9 fL (7.4-10.4); PLATELET COUNT 280 x10^3/uL (130-400); RED BLOOD COUNT 2.84 x10^6/uL (3.82-5.3)
[2020-01-22 06:33] LABS: ANION GAP 4 mmol/L (5-15); CHLORIDE 105 mmol/L (98-107); CREATININE 0.73 mg/dL (0.55-1.02)
[2020-01-22 06:51] LABS: BASOPHILS # (AUTO) 0.03 x10^3/uL (0-0.1); BASOPHILS % (AUTO) 0 % (0-1); EOSINOPHILS # (AUTO) 0.19 x10^3/uL (0-0.4); EOSINOPHILS % (AUTO) 2 % (1-7); LYMPHOCYTES % (AUTO) 9 % (22-44); MD SCAN; MONOCYTES # (AUTO) 0.95 x10^3/uL (0.2-0.8); MONOCYTES % (AUTO) 8 % (2-9); NEUTROPHILS # (AUTO) 10.34 x10^3/uL (1.8-6.8); NEUTROPHILS % (AUTO) 82 % (42-75)
[2020-01-22] MEDS: GABAPENTIN 300 MG CAPSULE PO SCH ×2 (08:54→20:20)
[2020-01-22] MEDS: METOPROLOL TARTRATE 25 MG TAB PO SCH ×3 (08:54→20:24)
[2020-01-22] MEDS: VENLAFAXINE XR 37.5MG CAP.ER.24H PO SCH (08:54)
[2020-01-22] MEDS: SENNA/DOCUSATE TABLET PO SCH (08:54)
[2020-01-22] MEDS: HYDROmorphone 1 MG/ML, 1ML INJ IV PRN ×3 (10:28→16:22)
[2020-01-22] MEDS ORDERED: SODIUM CHLORIDE 0.9% 1,000ML IVBOLUS ONE (13:00)
[2020-01-22] MEDS: SODIUM CHLORIDE 0.9% 1,000ML IVBOLUS ONE ×2 (14:49→16:00)
[2020-01-22] MEDS: POLYETHYLENE GLYCOL 17 GM PACKET PO PRN (15:47)
[2020-01-22] MEDS: SODIUM CHLORIDE 0.9% 1,000 ML IV SCH (23:00)
[2020-01-23] VITALS (10 sets, daily range): BP systolic 86–105; BP diastolic 48–77
[2020-01-23] MEDS: HYDROmorphone 1 MG/ML, 1ML INJ IV PRN ×5 (01:44→20:44)
[2020-01-23] MEDS: HYDROcodone/APAP 5/325 TABLET PO PRN ×4 (04:28→17:08)
[2020-01-23] MEDS: KETOROLAC 30 MG/1 ML IVPush PRN (04:38)
[2020-01-23] MEDS: AMPICILLIN/SULBACTAM 3 GM in SODIUM CHLORIDE 0.9% 100 ML IV SCH ×3 (05:40→22:59)
[2020-01-23] MEDS: GUAIFENESIN 200 MG TABLET PO SCH ×4 (05:49→20:44)
[2020-01-23 06:01] LABS: ALBUMIN 1.6 g/dL (3.4-5.0); ANION GAP 6 mmol/L (5-15); CALCIUM 7.4 mg/dL (8.5-10.1); CHLORIDE 109 mmol/L (98-107); CREATININE 0.46 mg/dL (0.55-1.02)
[2020-01-23 06:05] LABS: BASOPHILS # (AUTO) 0.03 x10^3/uL (0-0.1); BASOPHILS % (AUTO) 0 % (0-1); EOSINOPHILS # (AUTO) 0.59 x10^3/uL (0-0.4); EOSINOPHILS % (AUTO) 5 % (1-7); LYMPHOCYTES # (AUTO) 1.43 x10^3/uL (1-3.4); LYMPHOCYTES % (AUTO) 11 % (22-44); MD NO; MEAN CORPUSCULAR HEMOGLOBIN 29.5 pg (27.0-34.8); MEAN CORPUSCULAR HGB CONC 32.9 g/dL (32.4-35.8); MEAN CORPUSCULAR VOLUME 89.7 fL (80-100); MEAN PLATELET VOLUME 8.2 fL (7.4-10.4); MONOCYTES # (AUTO) 0.95 x10^3/uL (0.2-0.8); MONOCYTES % (AUTO) 7 % (2-9); NEUTROPHILS % (AUTO) 77 % (42-75); PLATELET COUNT 301 x10^3/uL (130-400); RED BLOOD COUNT 2.67 x10^6/uL (3.82-5.3); RED CELL DISTRIBUTION WIDTH 16.8 % (9.6-15.2)
[2020-01-23] MEDS: POLYETHYLENE GLYCOL 17 GM PACKET PO PRN (08:46)
[2020-01-23] MEDS: SENNA/DOCUSATE TABLET PO SCH ×2 (08:48→08:58)
[2020-01-23] MEDS: VENLAFAXINE XR 37.5MG CAP.ER.24H PO SCH (08:48)
[2020-01-23] MEDS: GABAPENTIN 300 MG CAPSULE PO SCH ×2 (08:48→20:44)
[2020-01-23] MEDS: METOPROLOL TARTRATE 25 MG TAB PO SCH ×2 (08:50→20:43)
[2020-01-23] MEDS: SODIUM CHLORIDE 0.9% 1,000 ML IV SCH ×3 (08:50→23:30)
[2020-01-23] MEDS: VORICONAZOLE 200 MG TABLET PO SCH ×2 (11:54→22:59)
[2020-01-23] MEDS ORDERED: POTASSIUM PHOSPHATE 44 MEQ in SODIUM CHLORIDE 0.9% 500 ML IV ONE (13:30)
[2020-01-23] MEDS: SYMBICORT INH SCH (20:45)
[2020-01-24 01:24] VITALS: BP 88/50
[2020-01-24] MEDS ORDERED: ALBUTEROL SULFATE 2.5 MG/3 ML NPPB PRN (02:30)
[2020-01-24] MEDS: HYDROmorphone 1 MG/ML, 1ML INJ IV PRN ×5 (03:14→22:13)
[2020-01-24] MEDS: AMPICILLIN/SULBACTAM 3 GM in SODIUM CHLORIDE 0.9% 100 ML IV SCH ×3 (06:08→22:20)
[2020-01-24] MEDS: GUAIFENESIN 200 MG TABLET PO SCH ×4 (06:08→22:01)
[2020-01-24 07:16] VITALS: BP 117/68
[2020-01-24 07:40] VITALS: BP 95/56
[2020-01-24] MEDS: METOPROLOL TARTRATE 25 MG TAB PO SCH ×2 (07:50→22:00)
[2020-01-24] MEDS ORDERED: ACETAMINOPHEN 325 MG TABLET PO PRN (08:30)
[2020-01-24] MEDS: SENNA/DOCUSATE TABLET PO SCH (09:00)
[2020-01-24] MEDS: SYMBICORT INH SCH ×2 (09:25→22:00)
[2020-01-24] MEDS: GABAPENTIN 300 MG CAPSULE PO SCH ×2 (09:27→22:01)
[2020-01-24] MEDS: VENLAFAXINE XR 37.5MG CAP.ER.24H PO SCH (09:27)
[2020-01-24] MEDS: VORICONAZOLE 200 MG TABLET PO SCH ×2 (11:17→23:56)
[2020-01-24 13:10] VITALS: BP 91/50
[2020-01-24 19:07] VITALS: BP 102/58
[2020-01-24] MEDS: HYDROcodone/APAP 5/325 TABLET PO PRN (20:18)
[2020-01-24] MEDS ORDERED: SODIUM CHLORIDE 0.9% 1,000 ML IV SCH (22:00)
[2020-01-24 23:59] VITALS: BP 89/50
[2020-01-25] MEDS: HYDROmorphone 1 MG/ML, 1ML INJ IV PRN ×6 (02:51→23:54)
[2020-01-25] MEDS: GUAIFENESIN 200 MG TABLET PO SCH ×4 (06:00→20:07)
[2020-01-25] MEDS: AMPICILLIN/SULBACTAM 3 GM in SODIUM CHLORIDE 0.9% 100 ML IV SCH ×3 (06:06→22:11)
[2020-01-25 06:41] LABS: BASOPHILS # (AUTO) 0.03 x10^3/uL (0-0.1); BASOPHILS % (AUTO) 0 % (0-1); EOSINOPHILS # (AUTO) 0.89 x10^3/uL (0-0.4); EOSINOPHILS % (AUTO) 10 % (1-7); LYMPHOCYTES # (AUTO) 1.42 x10^3/uL (1-3.4); LYMPHOCYTES % (AUTO) 15 % (22-44); MD NO; MEAN CORPUSCULAR HEMOGLOBIN 29.3 pg (27.0-34.8); MEAN CORPUSCULAR HGB CONC 32.4 g/dL (32.4-35.8); MEAN CORPUSCULAR VOLUME 90.4 fL (80-100); MEAN PLATELET VOLUME 7.9 fL (7.4-10.4); MONOCYTES % (AUTO) 12 % (2-9); NEUTROPHILS # (AUTO) 5.79 x10^3/uL (1.8-6.8); NEUTROPHILS % (AUTO) 63 % (42-75); PLATELET COUNT 446 x10^3/uL (130-400); RED BLOOD COUNT 2.56 x10^6/uL (3.82-5.3); RED CELL DISTRIBUTION WIDTH 16.3 % (9.6-15.2)
[2020-01-25 06:42] LABS: ANION GAP 6 mmol/L (5-15); CALCIUM 7.8 mg/dL (8.5-10.1); CHLORIDE 109 mmol/L (98-107); CREATININE 0.52 mg/dL (0.55-1.02)
[2020-01-25 06:43] LABS: % IRON SATURATION 11 % (20-55); IRON LEVEL 18 mcg/dL (50-170); TOTAL IRON BINDING CAPACITY 158 mcg/dL (250-450)
[2020-01-25] MEDS: GABAPENTIN 300 MG CAPSULE PO SCH ×2 (08:37→20:07)
[2020-01-25] MEDS: SENNA/DOCUSATE TABLET PO SCH (08:37)
[2020-01-25] MEDS: SYMBICORT INH SCH ×2 (08:37→21:00)
[2020-01-25] MEDS: VENLAFAXINE XR 37.5MG CAP.ER.24H PO SCH (08:37)
[2020-01-25] MEDS: METOPROLOL TARTRATE 25 MG TAB PO SCH (08:38)
[2020-01-25 08:41] VITALS: BP 91/50
[2020-01-25] MEDS ORDERED: BISACODYL 10 MG SUPP PR SCH (10:30)
[2020-01-25] MEDS: VORICONAZOLE 200 MG TABLET PO SCH ×2 (10:41→23:11)
[2020-01-25] MEDS: FERROUS SULFATE 325 MG TABLET PO SCH (10:41)
[2020-01-25 15:56] VITALS: BP 92/51
[2020-01-25 19:44] VITALS: BP 90/50
[2020-01-25] MEDS: SODIUM CHLORIDE 0.9% 1,000 ML IV SCH (22:12)
[2020-01-26 01:42] VITALS: BP 99/65
[2020-01-26] MEDS: HYDROmorphone 1 MG/ML, 1ML INJ IV PRN ×5 (03:58→21:33)
[2020-01-26] MEDS: AMPICILLIN/SULBACTAM 3 GM in SODIUM CHLORIDE 0.9% 100 ML IV SCH ×3 (06:25→21:32)
[2020-01-26] MEDS: GUAIFENESIN 200 MG TABLET PO SCH ×4 (06:27→20:20)
[2020-01-26 06:36] LABS: MEAN CORPUSCULAR HEMOGLOBIN 29.6 pg (27.0-34.8); MEAN CORPUSCULAR HGB CONC 32.8 g/dL (32.4-35.8); MEAN CORPUSCULAR VOLUME 90.1 fL (80-100); MEAN PLATELET VOLUME 7.5 fL (7.4-10.4); PLATELET COUNT 512 x10^3/uL (130-400); RED BLOOD COUNT 2.44 x10^6/uL (3.82-5.3); RED CELL DISTRIBUTION WIDTH 17.4 % (9.6-15.2)
[2020-01-26 06:54] LABS: MD YES
[2020-01-26 06:56] LABS: <PLATELET ESTIMATE> INCREASED; <PLT MORPHOLOGY> NORMAL PLT MORPH; EOS#(MANUAL) 0.46 x10^3/uL (0.0-0.4); EOS% (MANUAL) 6 % (1-7); LYMPH#(MANUAL) 1.44 x10^3/uL (1-3.4); LYMPHS% (MANUAL) 19 % (22-44); METAMYELOCYTES# (MANUAL) 0.08 x10^3/uL (0-0); METAMYELOCYTES% (MANUAL) 1 % (0-1); MONOS#(MANUAL) 0.84 x10^3/uL (0.3-2.7); MONOS% (MANUAL) 11 % (2-9); MYELOCYTES# (MANUAL) 0.08 x10^3/uL (0-0); MYELOCYTES% (MANUAL) 1 % (0-0); SEG#(MANUAL) 4.71 x10^3/uL (1.8-6.8); SEGS% (MANUAL) 62 % (42-75)
[2020-01-26 06:57] LABS: ANISOCYTOSIS 1+; POLYCHROMASIA 1+
[2020-01-26 07:20] VITALS: BP 91/53
[2020-01-26] MEDS: SENNA/DOCUSATE TABLET PO SCH (08:29)
[2020-01-26] MEDS: VENLAFAXINE XR 37.5MG CAP.ER.24H PO SCH (08:29)
[2020-01-26] MEDS: GABAPENTIN 300 MG CAPSULE PO SCH ×2 (08:29→20:21)
[2020-01-26] MEDS ORDERED: METHYLNALTREXONE 12 MG/0.6 ML SYR SQ ONE (08:30)
[2020-01-26] MEDS: SYMBICORT INH SCH ×2 (08:30→20:22)
[2020-01-26] MEDS ORDERED: BISACODYL 10 MG SUPP PR PRN (09:30)
[2020-01-26] MEDS: SODIUM CHLORIDE 0.9% 1,000 ML IV SCH (12:26)
[2020-01-26] MEDS: VORICONAZOLE 200 MG TABLET PO SCH ×2 (12:28→23:48)
[2020-01-26 13:25] VITALS: BP 94/56
[2020-01-26] MEDS: HYDROcodone/APAP 5/325 TABLET PO PRN (18:44)
[2020-01-26 19:21] VITALS: BP 93/55
[2020-01-26] MEDS: CALCIUM/VITAMIN D3 250-125 TABLET PO SCH (20:21)
[2020-01-27] MEDS: POLYETHYLENE GLYCOL 17 GM PACKET PO PRN (01:17)
[2020-01-27] MEDS: HYDROcodone/APAP 5/325 TABLET PO PRN ×3 (01:17→15:11)
[2020-01-27 01:25] VITALS: BP 94/57
[2020-01-27] MEDS: GUAIFENESIN 200 MG TABLET PO SCH ×4 (05:27→21:01)
[2020-01-27] MEDS: AMPICILLIN/SULBACTAM 3 GM in SODIUM CHLORIDE 0.9% 100 ML IV SCH ×3 (05:28→22:00)
[2020-01-27] MEDS: HYDROmorphone 1 MG/ML, 1ML INJ IV PRN ×2 (05:39→19:54)
[2020-01-27 06:25] LABS: MEAN CORPUSCULAR HEMOGLOBIN 29.5 pg (27.0-34.8); MEAN CORPUSCULAR HGB CONC 32.3 g/dL (32.4-35.8); MEAN CORPUSCULAR VOLUME 91.2 fL (80-100); MEAN PLATELET VOLUME 7.8 fL (7.4-10.4); PLATELET COUNT 523 x10^3/uL (130-400); RED BLOOD COUNT 2.49 x10^6/uL (3.82-5.3); RED CELL DISTRIBUTION WIDTH 17.5 % (9.6-15.2)
[2020-01-27] MEDS: ALBUTEROL SULFATE 2.5 MG/3 ML NPPB SCH ×3 (06:59→19:59)
[2020-01-27 07:16] VITALS: BP 84/41
[2020-01-27 07:36] LABS: MD YES
[2020-01-27 07:40] LABS: BAND#(MANUAL) 0.06 x10^3/uL; BANDS%(MANUAL) 1 % (0-7); EOS% (MANUAL) 10 % (1-7); LYMPH#(MANUAL) 1.26 x10^3/uL (1-3.4); LYMPHS% (MANUAL) 21 % (22-44); METAMYELOCYTES# (MANUAL) 0.18 x10^3/uL (0-0); METAMYELOCYTES% (MANUAL) 3 % (0-1); MONOS#(MANUAL) 0.96 x10^3/uL (0.3-2.7); MONOS% (MANUAL) 16 % (2-9); MYELOCYTES# (MANUAL) 0.12 x10^3/uL (0-0); MYELOCYTES% (MANUAL) 2 % (0-0); SEG#(MANUAL) 2.82 x10^3/uL (1.8-6.8); SEGS% (MANUAL) 47 % (42-75)
[2020-01-27 07:42] LABS: ANISOCYTOSIS 1+; HYPOCHROMIA 1+; POLYCHROMASIA 1+
[2020-01-27 07:43] LABS: <PLATELET ESTIMATE> INCREASED; <PLT MORPHOLOGY> NORMAL PLT MORPH
[2020-01-27] MEDS: GABAPENTIN 300 MG CAPSULE PO SCH ×2 (08:06→21:01)
[2020-01-27] MEDS: CALCIUM/VITAMIN D3 250-125 TABLET PO SCH ×2 (08:06→21:01)
[2020-01-27] MEDS: FERROUS SULFATE 325 MG TABLET PO SCH ×2 (08:06→08:08)
[2020-01-27] MEDS: VENLAFAXINE XR 37.5MG CAP.ER.24H PO SCH (08:06)
[2020-01-27] MEDS: SENNA/DOCUSATE TABLET PO SCH (08:06)
[2020-01-27] MEDS: BUDESONIDE 0.5 MG/2 ML INHA INH SCH ×2 (09:00→19:58)
[2020-01-27] MEDS: SODIUM BICARBONATE 4.2%, 5ML NPPB SCH ×2 (09:00→21:00)
[2020-01-27] MEDS: VORICONAZOLE 200 MG TABLET PO SCH ×2 (10:24→23:09)
[2020-01-27 13:25] VITALS: BP 92/49
[2020-01-27 20:37] VITALS: BP 96/55
[2020-01-27] MEDS: SODIUM CHLORIDE 0.9% 1,000 ML IV SCH (22:00)
[2020-01-28 01:35] VITALS: BP 94/53
[2020-01-28] MEDS: HYDROcodone/APAP 5/325 TABLET PO PRN ×3 (02:10→17:44)
[2020-01-28] MEDS: ALBUTEROL SULFATE 2.5 MG/3 ML NPPB SCH ×4 (04:00→21:51)
[2020-01-28 04:28] LABS: MEAN CORPUSCULAR HEMOGLOBIN 28.8 pg (27.0-34.8); MEAN CORPUSCULAR HGB CONC 31.9 g/dL (32.4-35.8); MEAN CORPUSCULAR VOLUME 90.3 fL (80-100); MEAN PLATELET VOLUME 7.9 fL (7.4-10.4); PLATELET COUNT 635 x10^3/uL (130-400); RED BLOOD COUNT 2.75 x10^6/uL (3.82-5.3); RED CELL DISTRIBUTION WIDTH 17.5 % (9.6-15.2)
[2020-01-28 05:05] LABS: MD YES
[2020-01-28 05:06] LABS: BASOS#(MANUAL) 0.21 x10^3/uL (0-0.1); BASOS% (MANUAL) 2 % (0-1); EOS#(MANUAL) 0.52 x10^3/uL (0.0-0.4); EOS% (MANUAL) 5 % (1-7); LYMPH#(MANUAL) 2.37 x10^3/uL (1-3.4); LYMPHS% (MANUAL) 23 % (22-44); MONOS#(MANUAL) 1.24 x10^3/uL (0.3-2.7); MONOS% (MANUAL) 12 % (2-9); MYELOCYTES# (MANUAL) 0.21 x10^3/uL (0-0); MYELOCYTES% (MANUAL) 2 % (0-0); SEG#(MANUAL) 5.77 x10^3/uL (1.8-6.8); SEGS% (MANUAL) 56 % (42-75)
[2020-01-28 05:07] LABS: <PLATELET ESTIMATE> INCREASED; <PLT MORPHOLOGY> NORMAL PLT MORPH; ANISOCYTOSIS 1+; POLYCHROMASIA 1+
[2020-01-28 05:08] LABS: OVALOCYTES 1+
[2020-01-28] MEDS: GUAIFENESIN 200 MG TABLET PO SCH ×5 (05:53→20:28)
[2020-01-28] MEDS: AMPICILLIN/SULBACTAM 3 GM in SODIUM CHLORIDE 0.9% 100 ML IV SCH ×3 (05:53→21:32)
[2020-01-28] MEDS: HYDROmorphone 1 MG/ML, 1ML INJ IV PRN ×3 (06:01→20:43)
[2020-01-28] MEDS: BUDESONIDE 0.5 MG/2 ML INHA INH SCH ×3 (07:20→21:52)
[2020-01-28 07:56] VITALS: BP 92/56
[2020-01-28] MEDS: VENLAFAXINE XR 37.5MG CAP.ER.24H PO SCH (08:17)
[2020-01-28] MEDS: GABAPENTIN 300 MG CAPSULE PO SCH ×2 (08:17→20:29)
[2020-01-28] MEDS: CALCIUM/VITAMIN D3 250-125 TABLET PO SCH ×2 (08:18→20:29)
[2020-01-28] MEDS: SENNA/DOCUSATE TABLET PO SCH ×2 (08:18→08:23)
[2020-01-28] MEDS: SODIUM CHLORIDE 0.9% 1,000 ML IV SCH ×2 (08:18→20:28)
[2020-01-28] MEDS: VORICONAZOLE 200 MG TABLET PO SCH ×2 (10:57→21:33)
[2020-01-28 15:45] VITALS: BP 94/57
[2020-01-28 18:49] VITALS: BP 96/58
[2020-01-28] MEDS: POLYETHYLENE GLYCOL 17 GM PACKET PO PRN (20:48)
[2020-01-29 01:34] VITALS: BP 95/59
[2020-01-29] MEDS: ALBUTEROL SULFATE 2.5 MG/3 ML NPPB SCH ×4 (04:00→20:40)
[2020-01-29 05:18] LABS: BASOPHILS # (AUTO) 0.02 x10^3/uL (0-0.1); BASOPHILS % (AUTO) 0 % (0-1); EOSINOPHILS # (AUTO) 0.59 x10^3/uL (0-0.4); EOSINOPHILS % (AUTO) 9 % (1-7); LYMPHOCYTES # (AUTO) 1.29 x10^3/uL (1-3.4); LYMPHOCYTES % (AUTO) 19 % (22-44); MD NO; MEAN CORPUSCULAR HEMOGLOBIN 28.1 pg (27.0-34.8); MEAN CORPUSCULAR HGB CONC 30.8 g/dL (32.4-35.8); MEAN CORPUSCULAR VOLUME 91.3 fL (80-100); MEAN PLATELET VOLUME 7.7 fL (7.4-10.4); MONOCYTES # (AUTO) 1.19 x10^3/uL (0.2-0.8); MONOCYTES % (AUTO) 17 % (2-9); NEUTROPHILS # (AUTO) 3.75 x10^3/uL (1.8-6.8); NEUTROPHILS % (AUTO) 55 % (42-75); PLATELET COUNT 622 x10^3/uL (130-400); RED BLOOD COUNT 2.58 x10^6/uL (3.82-5.3); RED CELL DISTRIBUTION WIDTH 17.9 % (9.6-15.2)
[2020-01-29] MEDS: GUAIFENESIN 200 MG TABLET PO SCH ×4 (05:23→20:40)
[2020-01-29] MEDS: AMPICILLIN/SULBACTAM 3 GM in SODIUM CHLORIDE 0.9% 100 ML IV SCH ×3 (05:23→21:55)
[2020-01-29] MEDS: HYDROcodone/APAP 5/325 TABLET PO PRN ×2 (05:24→13:42)
[2020-01-29 06:58] VITALS: BP 88/54
[2020-01-29] MEDS: HYDROmorphone 1 MG/ML, 1ML INJ IV PRN ×3 (07:58→23:59)
[2020-01-29] MEDS: CALCIUM/VITAMIN D3 250-125 TABLET PO SCH ×2 (08:00→20:40)
[2020-01-29] MEDS: VENLAFAXINE XR 37.5MG CAP.ER.24H PO SCH (08:01)
[2020-01-29] MEDS: SENNA/DOCUSATE TABLET PO SCH (08:01)
[2020-01-29] MEDS: GABAPENTIN 300 MG CAPSULE PO SCH ×2 (08:01→20:40)
[2020-01-29] MEDS: SODIUM CHLORIDE 0.9% 1,000 ML IV SCH ×2 (08:12→20:41)
[2020-01-29] MEDS: FERROUS SULFATE 325 MG TABLET PO SCH (10:19)
[2020-01-29] MEDS: VORICONAZOLE 200 MG TABLET PO SCH ×2 (10:19→23:03)
[2020-01-29] MEDS: IBUPROFEN 200 MG TABLET PO PRN (10:19)
[2020-01-29 12:50] VITALS: BP 95/59
[2020-01-29] MEDS ORDERED: GABA300C10 PO (14:14)
[2020-01-29] MEDS ORDERED: GUAI200T37 PO (14:14)
[2020-01-29] MEDS ORDERED: IBUP-1902 PO (14:14)
[2020-01-29] MEDS ORDERED: BISA10SU4 PR (14:14)
[2020-01-29] MEDS ORDERED: FERR-51 PO (14:14)
[2020-01-29] MEDS ORDERED: ACET325T26 PO (14:14)
[2020-01-29] MEDS ORDERED: BUDE0.5A INH (14:14)
[2020-01-29] MEDS ORDERED: CALC1TAB68 PO (14:14)
[2020-01-29] MEDS ORDERED: VENL37.52 PO (14:14)
[2020-01-29] MEDS ORDERED: VORI200T PO (14:14)
[2020-01-29] MEDS ORDERED: HYDR-3237 PO (14:14)
[2020-01-29] MEDS ORDERED: SENN-193 PO (14:14)
[2020-01-29] MEDS ORDERED: ALBU2.5V NPPB (14:14)
[2020-01-29] MEDS ORDERED: ONDA4VIA60 IVPush (14:14)
[2020-01-29 19:25] VITALS: BP 90/53
[2020-01-29] MEDS: BUDESONIDE 0.5 MG/2 ML INHA INH SCH (20:40)
[2020-01-29 23:58] VITALS: BP 106/65
[2020-01-30 01:42] VITALS: BP 98/62
[2020-01-30] MEDS: ALBUTEROL SULFATE 2.5 MG/3 ML NPPB SCH ×4 (03:30→19:57)
[2020-01-30] MEDS: AMPICILLIN/SULBACTAM 3 GM in SODIUM CHLORIDE 0.9% 100 ML IV SCH ×3 (05:25→22:00)
[2020-01-30] MEDS: GUAIFENESIN 200 MG TABLET PO SCH ×4 (05:26→20:44)
[2020-01-30 06:30] VITALS: BP 116/69
[2020-01-30] MEDS: HYDROmorphone 1 MG/ML, 1ML INJ IV PRN ×2 (06:31→11:24)
[2020-01-30] MEDS: CALCIUM/VITAMIN D3 250-125 TABLET PO SCH ×2 (08:29→20:51)
[2020-01-30] MEDS: IBUPROFEN 200 MG TABLET PO PRN (08:29)
[2020-01-30] MEDS: GABAPENTIN 300 MG CAPSULE PO SCH ×2 (08:29→20:50)
[2020-01-30] MEDS: ACETAMINOPHEN 325 MG TABLET PO SCH ×3 (08:29→20:50)
[2020-01-30] MEDS: VENLAFAXINE XR 37.5MG CAP.ER.24H PO SCH (08:29)
[2020-01-30] MEDS: SENNA/DOCUSATE TABLET PO SCH (08:30)
[2020-01-30] MEDS: HYDROcodone/APAP 5/325 TABLET PO PRN ×3 (08:30→20:50)
[2020-01-30] MEDS: BUDESONIDE 0.5 MG/2 ML INHA INH SCH ×2 (09:00→19:57)
[2020-01-30] MEDS: VORICONAZOLE 200 MG TABLET PO SCH ×2 (11:23→22:50)
[2020-01-30 12:04] VITALS: BP 91/52
[2020-01-30 20:54] VITALS: BP 90/53
[2020-01-30] MEDS: SODIUM CHLORIDE 0.9% 1,000 ML IV SCH (22:00)
[2020-01-31 02:04] VITALS: BP 141/73
[2020-01-31] MEDS: ALBUTEROL SULFATE 2.5 MG/3 ML NPPB SCH ×4 (02:21→22:00)
[2020-01-31] MEDS: ACETAMINOPHEN 325 MG TABLET PO SCH ×4 (02:30→20:30)
[2020-01-31] MEDS: HYDROmorphone 1 MG/ML, 1ML INJ IV PRN (02:58)
[2020-01-31 03:59] LABS: MEAN CORPUSCULAR HEMOGLOBIN 28.6 pg (27.0-34.8); MEAN CORPUSCULAR HGB CONC 31.7 g/dL (32.4-35.8); MEAN CORPUSCULAR VOLUME 90.1 fL (80-100); MEAN PLATELET VOLUME 7.9 fL (7.4-10.4); PLATELET COUNT 606 x10^3/uL (130-400); RED BLOOD COUNT 2.54 x10^6/uL (3.82-5.3); RED CELL DISTRIBUTION WIDTH 17.6 % (9.6-15.2)
[2020-01-31 04:58] LABS: MD YES
[2020-01-31 05:00] LABS: ANISOCYTOSIS 1+; EOS#(MANUAL) 0.21 x10^3/uL (0.0-0.4); EOS% (MANUAL) 3 % (1-7); LYMPH#(MANUAL) 0.97 x10^3/uL (1-3.4); LYMPHS% (MANUAL) 14 % (22-44); MONOS#(MANUAL) 0.28 x10^3/uL (0.3-2.7); MONOS% (MANUAL) 4 % (2-9); MYELOCYTES# (MANUAL) 0.07 x10^3/uL (0-0); MYELOCYTES% (MANUAL) 1 % (0-0); NRBC % (MANUAL) 1 % (0-1); OVALOCYTES 1+; POLYCHROMASIA 1+; SEG#(MANUAL) 5.38 x10^3/uL (1.8-6.8); SEGS% (MANUAL) 78 % (42-75)
[2020-01-31 05:01] LABS: <PLATELET ESTIMATE> INCREASED; <PLT MORPHOLOGY> NORMAL PLT MORPH
[2020-01-31] MEDS: AMPICILLIN/SULBACTAM 3 GM in SODIUM CHLORIDE 0.9% 100 ML IV SCH ×3 (06:00→22:30)
[2020-01-31] MEDS: GUAIFENESIN 200 MG TABLET PO SCH ×4 (06:00→20:51)
[2020-01-31 08:08] VITALS: BP 105/66
[2020-01-31] MEDS: BUDESONIDE 0.5 MG/2 ML INHA INH SCH ×2 (08:55→22:00)
[2020-01-31] MEDS: SENNA/DOCUSATE TABLET PO SCH (09:18)
[2020-01-31] MEDS: CALCIUM/VITAMIN D3 250-125 TABLET PO SCH ×2 (09:18→20:57)
[2020-01-31] MEDS: VORICONAZOLE 200 MG TABLET PO SCH ×2 (09:18→23:47)
[2020-01-31] MEDS: GABAPENTIN 300 MG CAPSULE PO SCH ×2 (09:18→20:57)
[2020-01-31] MEDS: FERROUS SULFATE 325 MG TABLET PO SCH (09:18)
[2020-01-31] MEDS: VENLAFAXINE XR 37.5MG CAP.ER.24H PO SCH (09:18)
[2020-01-31] MEDS: HYDROcodone/APAP 5/325 TABLET PO PRN ×3 (09:18→20:57)
[2020-01-31] MEDS: SODIUM CHLORIDE 0.9% 1,000 ML IV SCH (13:24)
[2020-01-31 14:27] VITALS: BP 94/61
[2020-01-31] MEDS: IBUPROFEN 200 MG TABLET PO PRN (14:41)
[2020-01-31 19:27] VITALS: BP 98/52
[2020-02-01 00:49] VITALS: BP 95/56
[2020-02-01] MEDS: IBUPROFEN 200 MG TABLET PO PRN (00:59)
[2020-02-01] MEDS: ACETAMINOPHEN 325 MG TABLET PO SCH ×3 (02:30→14:30)
[2020-02-01] MEDS: ALBUTEROL SULFATE 2.5 MG/3 ML NPPB SCH ×2 (03:00→08:40)
[2020-02-01] MEDS: HYDROcodone/APAP 5/325 TABLET PO PRN ×2 (03:37→09:50)
[2020-02-01] MEDS: SODIUM CHLORIDE 0.9% 1,000 ML IV SCH (04:48)
[2020-02-01] MEDS: GUAIFENESIN 200 MG TABLET PO SCH ×2 (06:00→11:53)
[2020-02-01] MEDS: AMPICILLIN/SULBACTAM 3 GM in SODIUM CHLORIDE 0.9% 100 ML IV SCH ×2 (06:36→14:23)
[2020-02-01 06:49] VITALS: BP 99/61
[2020-02-01] MEDS: BUDESONIDE 0.5 MG/2 ML INHA INH SCH (08:40)
[2020-02-01] MEDS: VENLAFAXINE XR 37.5MG CAP.ER.24H PO SCH (08:48)
[2020-02-01] MEDS: SENNA/DOCUSATE TABLET PO SCH (08:48)
[2020-02-01] MEDS: GABAPENTIN 300 MG CAPSULE PO SCH (08:49)
[2020-02-01] MEDS: CALCIUM/VITAMIN D3 250-125 TABLET PO SCH (08:49)
[2020-02-01] MEDS ORDERED: HYDROcodone/APAP 5/325 TABLET PO PRN (11:00)
[2020-02-01] MEDS: VORICONAZOLE 200 MG TABLET PO SCH (11:53)
[2020-02-01 12:41] VITALS: BP 92/56
[2020-02-01] MEDS ORDERED: AMPI3VIA IV (14:46)
[2020-02-01 15:30] VITALS: BP 98/64
== END 2020-02-01 16:20 | DRG 853 ==
LOC: ED 17:12 → EDIP 18:37 → 3WST 20:32 → 3N 01-10 15:13 → CCU 01-20 15:53 → 4NE 01-21 10:34 → 5SO 01-22 13:45 → 4WST 01-26 16:03 → 4NE 01-31 18:41
PROVIDERS: ADMIT Family Medicine; ATTEND Internal Medicine
PROC: 0BBG3ZX Excision of Left Upper Lung Lobe, Percutaneous Approach, Diagnostic (ICD-10-PCS; 2020-01-13)
PROC: 02HV33Z Insertion of Infusion Device into Superior Vena Cava, Percutaneous Approach (ICD-10-PCS; 2020-01-14)
PROC: B5181ZA Fluoroscopy of Superior Vena Cava using Low Osmolar Contrast, Guidance (ICD-10-PCS; 2020-01-14)
PROC: B548ZZA Ultrasonography of Superior Vena Cava, Guidance (ICD-10-PCS; 2020-01-14)
PROC: 0BNG0ZZ Release Left Upper Lung Lobe, Open Approach (ICD-10-PCS; 2020-01-20)
PROC: 0BJQ4ZZ Inspection of Pleura, Percutaneous Endoscopic Approach (ICD-10-PCS; 2020-01-20)
PROC: 0W9B30Z Drainage of Left Pleural Cavity with Drainage Device, Percutaneous Approach (ICD-10-PCS; 2020-01-20)
PROC: 0BB Respiratory System, Excision (ICD-10-PCS; 2020-01-20)
PROC: 30233N1 Transfusion of Nonautologous Red Blood Cells into Peripheral Vein, Percutaneous Approach (ICD-10-PCS; 2020-01-20)
PROC: 0BBP0ZZ Excision of Left Pleura, Open Approach (ICD-10-PCS; principal; 2020-01-20 10:45)
DX: A41.9 Sepsis, unspecified organism (principal); J96.01 Acute respiratory failure with hypoxia; B44.0 Invasive pulmonary aspergillosis; J16.8 Pneumonia due to other specified infectious organisms; J86.0 Pyothorax with fistula; I82.612 Acute embolism and thrombosis of superficial veins of left upper extremity; J43.9 Emphysema, unspecified; D75.1 Secondary polycythemia; D50.9 Iron deficiency anemia, unspecified; E83.39 Other disorders of phosphorus metabolism; E83.51 Hypocalcemia; I10 Essential (primary) hypertension; I48.91 Unspecified atrial fibrillation; K59.00 Constipation, unspecified; K66.0 Peritoneal adhesions (postprocedural) (postinfection); T38.0X5A Adverse effect of glucocorticoids and synthetic analogues, initial encounter; Z82.49 Family history of ischemic heart disease and other diseases of the circulatory system; Z87.891 Personal history of nicotine dependence; Z20.828 Contact with and (suspected) exposure to other viral communicable diseases; Z90.710 Acquired absence of both cervix and uterus; E86.0 Dehydration; B39.9 Histoplasmosis, unspecified
CPT/HCPCS: 32405; 36415; 36573; 36600; 71045; 71260; 71275; 77012; 80048; 80053; 80061; 80069; 80299; 82330; 82803; 82947; 83540; 83550; 83605; 83735; 83880; 84132; 84145; 84295; 84439; 84443; 84484; 85014; 85018; 85025; 85379; 85610; 85651; 86140; 86361; 86612; 86635; 86698; 86738; 86850; 86900; 86923; 87015; 87040; 87070; 87075; 87081; 87102; 87107; 87116; 87176; 87205; 87206; 87305; 87385; 87449; 87806; 88305; 88309; 93005; 94640; 96374; 99156; 99157; C1729; G0378; J0295; J0456; J0690; J0696; J1100; J1170; J1644; J1650; J1885; J2248; J2250; J2405; J2704; J2710; J3010; J7613; J7626; Q9967; C1751; G0475; J0330; J2270; J2310; J2370; J2930; J3475; J7030; J7040; J7050; P9016

== ENCOUNTER 2020-03-09 08:08 | Outpatient (CLI) | payer MEDICARE, MEDICAID ==
[~2020-03-09 08:08] MED LIST: ACET325T26 PO; ALBU2.5V NPPB; AMPI3VIA IV; BISA10SU4 PR; BUDE0.5A INH; BUDE10.2 INH; CALC1TAB68 PO; CLON0.1T22 PO; CLON0.5T PO; FERR-51 PO; GABA300C10 PO; GUAI200T37 PO; HYDR-3237 PO; IBUP-1902 PO; ONDA4VIA60 IVPush; SENN-193 PO; VENL37.52 PO; VORI200T PO; albuterol
[2020-03-09] MEDS ORDERED: OMNIPAQUE 350 MG/ML, 75ML BOTTLE ONE (08:45)
== END 2020-03-09 23:59 | disposition home or self-care (01) ==
LOC: CFH 08:08
PROVIDERS: ATTEND Nurse Practitioner Family
DX: J43.2 Centrilobular emphysema (principal); J92.9 Pleural plaque without asbestos; R07.81 Pleurodynia; R91.8 Other nonspecific abnormal finding of lung field
CPT/HCPCS: 71260; Q9967

== ENCOUNTER 2020-04-05 11:10 | Emergency (ER) | payer MEDICARE, MEDICAID ==
[~2020-04-05] VITALS: Ht 154.9 cm; Wt 51.7 kg
--- NOTE | 2020-04-05 11:30 | NUR ---
PT PRESENTS TO ED AFTER CHEST TUBE FELL OUT THIS AM WHILE GETTING OUT OF SHOWER. 3 SIDED OCCULSIVE DRESSING PLACED. PT ON ALL MONITORS. PT A&O, RESPS EVEN AND UNLABORED, SPO2 100% ON 6L NC , 4L/MIN IS PT'S BASELINE. DAUGHTER AT BEDSIDE. PT INSTRUCTED TO REMAIN IN BED, CALL LIGHT IN REACH, BED LOCKED AND IN LOWEST POSITION.
--- NOTE | 2020-04-05 12:22 | NUR ---
pt in airborne isolation precautions, pt in mask. MD Saab ok'd pt to leave room for ap/lateral cxr with mask on pt and staff. pt to xray at this time. pt remains a&o, resps even and unlabored, [address], pt able to speak clearly in full sentences.
[2020-04-05 12:29] LABS: BASOPHILS # (AUTO) 0.05 x10^3/uL (0-0.1); BASOPHILS % (AUTO) 1 % (0-1); EOSINOPHILS # (AUTO) 0.37 x10^3/uL (0-0.4); EOSINOPHILS % (AUTO) 5 % (1-7); LYMPHOCYTES # (AUTO) 1.14 x10^3/uL (1-3.4); LYMPHOCYTES % (AUTO) 16 % (22-44); MD NO; MEAN CORPUSCULAR HEMOGLOBIN 24.6 pg (27.0-34.8); MEAN CORPUSCULAR HGB CONC 31.1 g/dL (32.4-35.8); MEAN CORPUSCULAR VOLUME 79.1 fL (80-100); MONOCYTES # (AUTO) 0.77 x10^3/uL (0.2-0.8); MONOCYTES % (AUTO) 11 % (2-9); NEUTROPHILS % (AUTO) 68 % (42-75); PLATELET COUNT 303 x10^3/uL (130-400); RED BLOOD COUNT 4.52 x10^6/uL (3.82-5.3); RED CELL DISTRIBUTION WIDTH 18.7 % (9.6-15.2)
[2020-04-05 12:41] LABS: CHLORIDE 110 mmol/L (98-107)
[2020-04-05 12:47] LABS: ALANINE AMINOTRANSFERASE 44 U/L (12-78); ALKALINE PHOSPHATASE 96 U/L (45-117); ANION GAP 5 mmol/L (5-15); BILIRUBIN,TOTAL 0.3 mg/dL (0.2-1.0); CALCIUM 8.4 mg/dL (8.5-10.1); CREATININE 0.74 mg/dL (0.55-1.02); TOTAL PROTEIN 8.4 g/dL (6.4-8.2)
--- NOTE | 2020-04-05 13:15 | NUR ---
PT RESTING ON GURNEY, A&O, RESPS EVEN AND UNLABORED. PT SPEAKING CLEARLY IN FULL SENTENCES WITHOUT DIFFICULTY. 3 SIDED OCCLUSIVE DRESSING REMAINS IN PLACE. ALL MONITORS IN PLACE, NSR ON RIDING INSTRUCTOR WITH NO ECTOPY. CALL LIGHT IN REACH. AWAITING SURGICAL CONSULT AND DISPO.
[2020-04-05 14:17] VITALS: BP 117/67
--- NOTE | 2020-04-05 14:39 | NUR ---
late entry for 1439 d/t patient care: surgeon MD Yoder consulted by EDVT, per EDMD Saab, recommendation from surgeon is to cover chest tube site with gauze dressing, taped on all sides. pt instructed to keep wound dry, and change gauze dressing if dressing becomes saturated for any reason. pt instructed to call for follow up appt with MD Yoder, contact information provided for pt to follow up. EDPA went to explain POC and reccs to pt, however she refused to end her phone call to speak with EDPA. DC education provided in verbal and written form to pt by this RN. dressing changed to gauze dressing over chest tube site per MD Yoder's instructions. pt is a&o, resps even and unlabored. pt ambulatory with steady gait, pt has no complaint at time of dc. pt wheeled to dc desk via wc, wearing oxygen at 4L/min, per pt, she has portable oxygen in her daughter's car which she will wear at baseline rate for transport home. pt's daughter did not enter ED to recieve dc instructions from staff, pt was picked up by daughter at ED entrance.
== END 2020-04-05 14:39 | disposition home or self-care (01) ==
LOC: ED 12:40
DX: T85.628A Displacement of other specified internal prosthetic devices, implants and grafts, initial encounter (principal); R07.89 Other chest pain; G89.29 Other chronic pain; R00.0 Tachycardia, unspecified
CPT/HCPCS: 36415; 71046; 80053; 83605; 84145; 85025; 87040; 93005; 99285

== ENCOUNTER → 2020-05-16 | Outpatient (CLI) | payer MEDICARE, MEDICAID ==
[~2020-05-16] MED LIST changes: +OMNIPAQUE 350 MG/ML, 75ML BOTTLE ONE
== END | disposition home or self-care (01) ==
LOC: CFH 10:57
PROVIDERS: ATTEND Nurse Practitioner Family
DX: J93.83 Other pneumothorax (principal); J98.4 Other disorders of lung; J43.9 Emphysema, unspecified; B44.9 Aspergillosis, unspecified
CPT/HCPCS: 71260; Q9967